=== PATIENT | female | born 1975 | race Caucasian/White ===

== ENCOUNTER 2020-06-15 09:59 | Outpatient (REF) | payer OTHER, SELFPAY ==
[2020-06-15 14:16] LABS: CT PCR NOT DETECTED (Not Detect.); NG PCR NOT DETECTED (Not Detect.)
== END 2020-06-15 10:00 | disposition home or self-care (01) ==
LOC: HO.LNP 09:59
PROVIDERS: PCP Internal Medicine; Visit Provider Obstetrics & Gynecology
DX: Z97.5 Presence of (intrauterine) contraceptive device (principal)
CPT/HCPCS: 87491; 87591; J7298

== ENCOUNTER → 2020-07-13 09:48 | Outpatient (BNVA) | payer OTHER, SELFPAY | PROVIDERS: PCP Internal Medicine; Visit Provider Obstetrics & Gynecology | DX: Z30.431 Encounter for routine checking of intrauterine contraceptive device (principal) | CPT/HCPCS: 99212 ==

== ENCOUNTER 2020-10-11 10:27 | Outpatient (REF) | payer OTHER, SELFPAY ==
[2020-10-12 11:22] LABS: BV Int Neg Control Negative (Negative); BV Int Pos Control Positive (Positive)
[2020-10-12 17:32] LABS: C. trachomatis RNA TMA NOT DETECTED (NOT DETECTED); N. gonorrhoeae RNA TMA NOT DETECTED (NOT DETECTED)
== END 2020-10-11 10:28 | disposition home or self-care (01) ==
LOC: CF 10:27
PROVIDERS: PCP Internal Medicine; Visit Provider Obstetrics & Gynecology
DX: R10.2 Pelvic and perineal pain (principal)
CPT/HCPCS: 81003; 81025; 87480; 87491; 87510; 87591; 87660; 99212

== ENCOUNTER 2020-10-11 13:22 | Outpatient (REF) | payer OTHER, SELFPAY ==
--- NOTE | 2020-10-11 13:26 | US_ITS ---
EXAMINATION: PELVIC ULTRASOUND CLINICAL INFORMATION: Pain COMPARISON: Previous exams most recent October 2018 TECHNIQUE: Transabdominal and transvaginal pelvic ultrasound was performed. Transvaginal exam was performed for better visualization of the uterus and ovaries. FINDINGS: The uterus is anteverted and measures 12.3 x 5.1 x 6 cm in dimension. There is an IUD in the uterus in satisfactory position. This is new in the interval from October 2018 exam. Endometrial thickness is normal measuring 0.9 cm. The uterus appears slightly heterogeneous. No focal uterine lesion is seen. The right ovary is normal-appearing and measures 2.1 x 1.5 x 1.1 cm. The left ovary is slightly enlarged measuring 3.6 x 3.2 x 2.6 cm, volume 16 mL. There is a 3.1 x 2.4 x 2.8 cm simple left ovarian cyst. There is no fluid in the pelvis. US/US transvaginal IMPRESSION: IUD in the uterus in satisfactory position. 3 cm simple left ovarian cyst.
--- NOTE | 2020-10-11 13:26 | US_ITS ---
EXAMINATION: PELVIC ULTRASOUND CLINICAL INFORMATION: Pain COMPARISON: Previous exams most recent October 2018 TECHNIQUE: Transabdominal and transvaginal pelvic ultrasound was performed. Transvaginal exam was performed for better visualization of the uterus and ovaries. FINDINGS: The uterus is anteverted and measures 12.3 x 5.1 x 6 cm in dimension. There is an IUD in the uterus in satisfactory position. This is new in the interval from October 2018 exam. Endometrial thickness is normal measuring 0.9 cm. The uterus appears slightly heterogeneous. No focal uterine lesion is seen. The right ovary is normal-appearing and measures 2.1 x 1.5 x 1.1 cm. The left ovary is slightly enlarged measuring 3.6 x 3.2 x 2.6 cm, volume 16 mL. There is a 3.1 x 2.4 x 2.8 cm simple left ovarian cyst. There is no fluid in the pelvis. US/US pelvic complete IMPRESSION: IUD in the uterus in satisfactory position. 3 cm simple left ovarian cyst.
== END 2020-10-11 13:23 | disposition home or self-care (01) ==
LOC: HO.US 13:22
PROVIDERS: Visit Provider Obstetrics & Gynecology
DX: R10.2 Pelvic and perineal pain (principal)
CPT/HCPCS: 76830; 76856

== ENCOUNTER 2020-10-13 10:13 | Outpatient (REF) | payer OTHER, SELFPAY | END 2020-10-13 10:14 | disposition home or self-care (01) | LOC: HO.LAB 10:13 | PROVIDERS: PCP Internal Medicine; Visit Provider Obstetrics & Gynecology | DX: Z30.432 Encounter for removal of intrauterine contraceptive device (principal); R10.2 Pelvic and perineal pain | CPT/HCPCS: 58301; 87071; 87205; 99212 ==

== ENCOUNTER → 2020-10-24 08:03 | Outpatient (BNVA) | payer OTHER, SELFPAY | PROVIDERS: PCP Internal Medicine; Visit Provider Obstetrics & Gynecology | DX: R10.2 Pelvic and perineal pain (principal) | CPT/HCPCS: 99212 ==

== ENCOUNTER 2021-03-20 09:50 | Outpatient (REF) | payer OTHER, SELFPAY ==
[2021-03-20 12:04] LABS: HCG Quantitative < 2 mIU/mL; TSH reflex Free T4 4.91 uIU/mL (0.32-4.0)
[2021-03-20 13:14] LABS: Free T4 (Free Thyroxine) 0.98 ng/dL (0.71-1.85)
[2021-03-22 03:06] LABS: Follicle Stimulating Hormone 14.1 mIU/mL; Lutenizing Hormone 25.5 mIU/mL; Prolactin 7.6 ng/mL
== END 2021-03-20 09:51 | disposition home or self-care (01) ==
LOC: HO.LAB 09:50
PROVIDERS: PCP Internal Medicine; Visit Provider Obstetrics & Gynecology
DX: Z01.411 Encounter for gynecological examination (general) (routine) with abnormal findings (principal); N91.2 Amenorrhea, unspecified
CPT/HCPCS: 36415; 83001; 83002; 84146; 84439; 84443; 84702

== ENCOUNTER → 2021-04-10 11:28 | Outpatient (BNVA) | payer OTHER, SELFPAY | PROVIDERS: PCP Internal Medicine; Visit Provider Obstetrics & Gynecology ==